=== PATIENT | male | born 1965 | race Caucasian/White ===

== ENCOUNTER 2017-02-08 01:33 | Inpatient (IN) | payer OTHER ==
[~2017-02-08] VITALS: Ht 188 cm; Wt 103.3 kg
--- NOTE | 2017-02-08 02:04 | ERA ---
ER Documentation Chief Complaint Date/Time DATE: 02/08/17 TIME: 02:03 Chief Complaint Shortness of breath HPI The patient is a 51-year-old male, presenting to the ER because of shortness of breath for 1 day after his neighbor had a fire pit on and recent exposure to smokes from the [employer]. He has similar symptoms previously from asthma. He denies fever, chills, neck pain, complains of substernal chest pressure with cough, denies chest pain with exertion of vomiting or diaphoresis , denies abdominal pain, vomiting. He does not smoke. He denies orthopnea, paroxysmal nocturnal dyspnea Past medical history: Asthma, peptic ulcer Past surgical history: Left knee ROS All systems reviewed and are negative except as per history of present illness. Allergies Allergies: Coded Allergies: No Known Allergy (Unverified , 02/08/17) PMhx/Soc History of Surgery: Yes (left knee sx) Anesthesia Reaction: No Hx Neurological Disorder: No Hx Respiratory Disorders: Yes (asthma,seasonal allergies) Hx Cardiac Disorders: No Hx Psychiatric Problems: No Hx Miscellaneous Medical Probl: No Hx Alcohol Use: Yes (casually) Hx Substance Use: No Hx Tobacco Use: No Smoking Status: Never smoker Physical Exam Vitals Vital Signs Date Time Temp Pulse Resp B/P Pulse Ox O2 Delivery O2 Flow Rate FiO2 02/08/17 02:35 Nasal Cannula 2 02/08/17 02:35 Nasal Cannula 2.0 02/08/17 02:23 80 24 96 Nasal Cannula 2.0 02/08/17 01:36 98.5 94 28 141/79 91 Physical Exam Const: No acute distress. Head: Atraumatic. Eyes: Normal Conjunctiva. ENT: Normal External Ears, Nose and Mouth. Neck: Full range of motion. No meningismus. Resp: Bilateral expiratory wheezes Cardio: Regular rate and rhythm. Abd: Soft, non distended, normal bowel sounds, non tender. Skin: No petechiae or rashes. Back: No midline or flank tenderness. Ext: No cyanosis, or edema. Neur: Awake and alert. No focal deficit Psych: Normal Mood and Affect. Result Diagram: 02/08/17 0224 02/08/17 0224 Results 24 hrs Laboratory Tests Test 02/08/17 02:24 White Blood Count 11.410^3/ul Red Blood Count 5.0910^6/ul Hemoglobin 14.8g/dl Hematocrit 44.6% Mean Corpuscular Volume 87.6fl Mean Corpuscular Hemoglobin 29.1pg Mean Corpuscular Hemoglobin Concent 33.2g/dl Red Cell Distribution Width 13.7% Platelet Count 47853^3/UL Mean Platelet Volume 10.2fl Neutrophils % 73.2% Lymphocytes % 13.1% Monocytes % 10.5% Eosinophils % 2.5% Basophils % 0.3% Nucleated Red Blood Cells % 0.0/100WBC Neutrophils # 8.410^3/ul Lymphocytes # 1.510^3/ul Monocytes # 1.210^3/ul Eosinophils # 0.310^3/ul Basophils # 0.010^3/ul Nucleated Red Blood Cells # 0.010^3/ul Prothrombin Time 12.8Sec Prothrombin Time Ratio 1.0 INR International Normalized Ratio 0.96 Activated Partial Thromboplast Time 26.3Sec D-Dimer < 220.00ng/ml D-Dimer Comment Sodium Level 138mmol/L Potassium Level 3.8mmol/L Chloride Level 101mmol/L Carbon Dioxide Level 27mmol/L Anion Gap 14 Blood Urea Nitrogen 15mg/dl Creatinine 0.93mg/dl Glucose Level 114mg/dl Calcium Level 9.5mg/dl Troponin I < 0.012ng/ml B-Type Natriuretic Peptide 76PG/ML Current Medications Medications (Trade) Dose Ordered Sig/Dayan Route PRN Reason Start Time Stop Time Status Last Admin Dose Admin Levalbuterol (Xopenex Neb) 3.75 mg ONCE STAT INH 02/08/17 02:11 02/08/17 02:13 DC 02/08/17 02:23 Ipratropium [place] (Atrovent 0.02% (Neb)) 1.5 mg ONCE STAT INH 02/08/17 02:11 02/08/17 02:13 DC 02/08/17 02:23 Methylprednisolone Sodium Succinate 125 mg 125 mg ONCE STAT IV 02/08/17 02:11 02/08/17 02:14 DC 02/08/17 02:29 Sodium Chloride (NS) 1,000 ml @ 1,000 mls/hr Q1H ONCE IV 02/08/17 02:30 02/08/17 03:29 DC 02/08/17 02:30 Pantoprazole (Protonix Iv) 40 mg ONCE ONCE IV 02/08/17 02:30 02/08/17 02:31 DC 02/08/17 02:29 Procedures/MDM EKG: Read by emergency physician Rate/Rhythm: Normal Sinus Rhythm 83 beats/min QRS, ST, T-waves: No ST elevation, no T inversion, IRBB Impression: Abnormal EKG [place] [id number] Radiology Main Line: [phone] DIAGNOSTIC IMAGING REPORT Patient: DWAIN ORONA : 1965 Age: 51 Sex: M MR #: [id number] DOS: 02/08/17 0211 Ordering MD: JASPAL ELI MD Location: E/R Room/Bed: PROCEDURE: XR Chest. CLINICAL INDICATION: Shortness of breath. TECHNIQUE: Single frontal chest x-ray. COMPARISON: None. FINDINGS: Heart is top normal size.. There is diffuse interstitial prominence compatible with mild CHF.. There is hypoventilation with bibasilar atelectasis.. There is no pleural effusion. There is no pneumothorax. The osseous structures are unremarkable. IMPRESSION: Heart top normal size. Mild CHF. Hypoventilation with bibasilar atelectasis. RPTAT: HMVK .Jaspal Mccollum MD, Date Time Electronically viewed and signed by .Jaspal Mccollum MD, on 02/08/2017 02:47 .K/ CC: JASPAL ELI MD MEDICAL MAKING DECISION: The patient is a 51-year-old male, presenting with acute asthma exacerbation with acute hypoxemia. He was treated with 1 L normal saline, Solu-Medrol 125 mg IV, Xopenex 3% 5 mg and Atrovent 1.5 mg nebulizer over one hour and Protonix 40 IV with moderate response. However his O2 sat is still low between 91-93% on room air. I do not suspect CHF or PE The differential diagnoses considered include but are not limited to asthma, COPD, pneumonia, pulmonary embolus, pleural effusion, congestive heart failure. Critical Care: Time: 35 minutes excluding all billable procedures. Treatments/Evaluations: Close monitoring and treatment of unstable vital signs, cardiorespiratory, and neurologic status, while maintaining tight balance of fluid, respiratory, and cardiac interventions. Departure Diagnosis: Primary Impression: Acute respiratory failure Additional Impression: Acute asthma exacerbation Condition: Stable Comments I discussed the findings with the patient. I discussed the patient with the on- call hospitalist Dr. Gallo at 4:30 AM who was made aware of the lab, the treatment, the patient condition. The patient is admitted to telemetry for 24 hour observation The patient's blood pressure was elevated (>120/80) but appears stable without evidence of hypertension emergency or urgency. The patient was counseled about the risks of hypertension and urged to pursue outpatient monitoring and therapy within a week with their primary care physician. JASPAL ELI MD Feb 08, 2017 02:04
[2017-02-08] MEDS ORDERED: IPRATROPIUM (NEB) 0.5 MG/2.5 ML AMP INH STA (02:11)
[2017-02-08] MEDS ORDERED: LEVALBUTEROL (NEB) 1.25 MG/0.5 ML AMP INH STA (02:11)
[2017-02-08] MEDS ORDERED: METHYLPREDNISOLONE 125 MG INJ IV STA (02:11)
[2017-02-08] MEDS ORDERED: SOD CHLORIDE 0.9% 1,000 ML IV ONE (02:30)
[2017-02-08] MEDS ORDERED: PANTOPRAZOLE 40 MG INJ IV ONE (02:30)
--- NOTE | 2017-02-08 02:47 | RADRPT ---
PROCEDURE: XR Chest. CLINICAL INDICATION: Shortness of breath. TECHNIQUE: Single frontal chest x-ray. COMPARISON: None. FINDINGS: Heart is top normal size.. There is diffuse interstitial prominence compatible with mild CHF.. Ther e is hypoventilation with bibasilar atelectasis.. There is no pleural effusion. There is no pneumo thorax. The osseous structures are unremarkable. IMPRESSION: Heart top normal size. Mild CHF. Hypoventilation with bibasilar atelectasis. RPTAT: HMVK .Jaspal Mccollum MD, MD Date Time Electronically viewed and signed by .Jaspal Mccollum MD, MD on 02/08/2017 02:47 .K/
[2017-02-08 03:03] LABS: BASOPHILS % 0.3 % (0.0-2.0); EOSINOPHILS # 0.3 10^3/ul (0.0-0.5); EOSINOPHILS % 2.5 % (0.0-7.0); HEMATOCRIT 44.6 % (42.0-52.0); HEMOGLOBIN 14.8 g/dl (14.0-18.0); LYMPHOCYTES # 1.5 10^3/ul (0.8-2.9); LYMPHOCYTES % 13.1 % (15.0-51.0); MEAN CORPUSCULAR HEMOGLOBIN 29.1 pg (29.0-33.0); MEAN CORPUSCULAR HGB CONC 33.2 g/dl (32.0-37.0); MEAN CORPUSCULAR VOLUME 87.6 fl (82.0-101.0); MEAN PLATELET VOLUME 10.2 fl (7.4-10.4); MONOCYTE # 1.2 10^3/ul (0.3-0.9); MONOCYTES % 10.5 % (0.0-11.0); NEUTROPHIL # 8.4 10^3/ul (1.6-7.5); NEUTROPHILS % 73.2 % (39.0-77.0); PLATELET COUNT 212 10^3/UL (140-415); RED BLOOD COUNT 5.09 10^6/ul (4.70-6.10); RED CELL DISTRIBUTION WIDTH 13.7 % (11.5-14.5); WHITE BLOOD COUNT 11.4 10^3/ul (4.8-10.8)
[2017-02-08 03:19] LABS: ADD SCAN DIFF NO
[2017-02-08 03:21] LABS: ANION GAP 14 (8-16); BLOOD UREA NITROGEN 15 mg/dl (7-20); CALCIUM 9.5 mg/dl (8.4-10.2); CARBON DIOXIDE 27 mmol/L (21-31); CHLORIDE 101 mmol/L (97-110); CREATININE 0.93 mg/dl (0.61-1.24); GLUCOSE 114 mg/dl (70-220); POTASSIUM 3.8 mmol/L (3.5-5.1); SODIUM 138 mmol/L (135-144)
[2017-02-08 03:33] LABS: TROPONIN-I < 0.012 ng/ml (0.00-0.12)
[2017-02-08 03:57] LABS: INR 0.96; PROTIME 12.8 Sec (12.2-14.2)
[2017-02-08 03:58] LABS: PARTIAL THROMBOPLASTIN TIME 26.3 Sec (25.0-35.0)
[2017-02-08 04:20] LABS: D-DIMER < 220.00 ng/ml (<460)
[2017-02-08] MEDS ORDERED: ONDANSETRON 4 MG INJ IV PRN ×2 (06:30→07:00)
[2017-02-08] MEDS ORDERED: ACETAMINOPHEN 325 MG TAB PO PRN ×2 (06:30→07:00)
[2017-02-08] MEDS ORDERED: BISACODYL (EC) 5 MG TAB PO PRN (07:00)
[2017-02-08] MEDS ORDERED: DOCUSATE SODIUM 100 MG CAP PO PRN (07:00)
[2017-02-08] MEDS ORDERED: FUROSEMIDE 40 MG INJ IV ONE (07:00)
[2017-02-08] MEDS ORDERED: NACL 0.9% 3 ML SYG IV SCH (07:00)
--- NOTE | 2017-02-08 07:00 | HP ---
Date/Time of Note Date/Time of Note DATE: 02/08/17 TIME: 06:47 Assessment/Plan VTE Prophylaxis VTE Prophylaxis Intervention: LMWH Assessment/Plan Chief Complaint/Hosp Course This is a 51-year-old male being admitted to the telemetry floor for: #1 Respiratory distress: This likely appears to be an acute asthma exacerbation based on the patient's history and his presentation. His x-ray did show some possible congestion. BNP though was within normal values and d- dimer was normal as well which likely makes heart failure and PE less likely at this time. I will however give him 1 dose of IV Lasix. Also continue him on albuterol every 4 hours and prednisone burst for 5 days. He did receive IV Solu -Medrol loading dose in the ED already. He does have a slight elevated white count however there are no fevers. At the current time I do not see any signs of any underlying pneumonia or infection. Will hold off on any antibiotics at this time. Will continue O2 supplementation via nasal cannula. #2 Obesity: We will check a TSH, lipid panel, and hemoglobin A1c #3 DVT and GI prophylaxis: Lovenox, Protonix Further treatment strategy will be implemented as per the clinical course Problems: HPI/ROS Admit Date/Time Admit Date/Time Hx of Present Illness Chief complaint: Shortness of breath 1 day The patient is a 51-year-old male, presenting to the ER because of shortness of breath for 1 day after his neighbor had a fire pit on and recent exposure to smokes from the [email or web address]. Patient also was working outside in the yard and where there is just implants. He has similar symptoms previously from asthma. He denies fever, chills, neck pain, complains of substernal chest pressure with cough, denies chest pain with exertion of vomiting or diaphoresis , denies abdominal pain, vomiting. He does not smoke. He denies orthopnea, paroxysmal nocturnal dyspnea Allergies: Environmental allergies Medications: See KEELEY JAIMES Const: As per HPI Eyes : No pain discharge or redness or change in visual acuity ENT: No pain, sore throat, congestion, congestion, dysphagia or discharge Respiratory: As per HPI Cardiovascular: No chest pain, palpitation, PND, or edema GI : no change in appetite, abdominal pain, nausea, vomiting, diarrhea, constipation, or change in the color his stool Genitourinary: No dysuria, hematuria, flank pain , discharge or CVA tenderness Musculoskeletal: No joint pain, back pain, neck pain, restricted range of motion in neck or joints Skin: No rash, bruising or hives Neuro: No headache, dizziness, syncope, seizure, focal weakness Endocrine: No polyuria, polydipsia, temperature intolerance Psych: No hallucination, depression, anxiety or suicidal ideation PMH/Family/Social Past Medical History Asthma, peptic ulcer? Past Surgical History Left knee surgery Family History Significant Family History: cancer (Lung cancer), diabetes Social History Alcohol Use: rarely Smoking Status: Never smoker Drug Use: none Exam/Review of Systems Vital Signs Vitals Vital Signs Date Time Temp Pulse Resp B/P Pulse Ox O2 Delivery O2 Flow Rate FiO2 02/08/17 06:09 80 18 129/69 94 Room Air 02/08/17 02:35 2 02/08/17 01:36 98.5 Exam Exam General: Patient is lying in bed in no acute distress. However when patient takes a deep breath he does go into a coughing fit. According to him he is feeling much better after receiving breathing treatments in the ED HEENT: Atraumatic, normocephalic. The pupils are equal, round and reactive. Extraocular motor are intact Neck: Supple with full range of motion. No rigidity or meningismus Chest: Nontender Lungs: Clear to auscultation bilaterally, no wheezes. Heart: Normal S1-S2, Regular rhythm and rate. Abdomen: Soft , nontender, nondistended , bowel sounds are present. No guarding no rebound tenderness , No masses or organomegaly. No costovertebral temporal angle mass Extremities: Normal to inspection, no edema no cyanosis Neurologic: Normal mental status, speech normal, cranial nerves II through XII are intact, motor and sensory are intact, no focal weakness Additional Comments PROCEDURE: XR Chest. CLINICAL INDICATION: Shortness of breath. TECHNIQUE: Single frontal chest x-ray. COMPARISON: None. FINDINGS: Heart is top normal size.. There is diffuse interstitial prominence compatible with mild CHF.. There is hypoventilation with bibasilar atelectasis.. There is no pleural effusion. There is no pneumothorax. The osseous structures are unremarkable. IMPRESSION: Heart top normal size. Mild CHF. Hypoventilation with bibasilar atelectasis. Rate/Rhythm: Normal Sinus Rhythm 83 beats/min QRS, ST, T-waves: No ST elevation, no T inversion, IRBB As per ED physician documentation Labs Result Diagram: 02/08/17 0224 02/08/17 0224 TOMMY KWON Feb 08, 2017 06:58
[2017-02-08 08:45] VITALS: BP 138/85; PULSE 68; RESP 18; Ht 188 cm; Wt 103.3 kg
[2017-02-08] MEDS ORDERED: ENOXAPARIN 40 MG/0.4 ML SYG SC SCH (09:00)
[2017-02-08 09:26] VITALS: PULSE 78
[2017-02-08] MEDS: predniSONE 20 MG TAB PO SCH (10:40)
[2017-02-08 12:00] VITALS: BP 130/65; PULSE 66; PULSE 72; RESP 18
[2017-02-08] MEDS: ALBUTEROL 0.083% (NEB) 2.5 MG/3 ML AMP HHN SCH ×3 (13:47→21:52)
[2017-02-08 16:00] VITALS: BP 127/72; PULSE 72; PULSE 77; RESP 18
[2017-02-08] MEDS ORDERED: ALBUTEROL/IPRATROPIUM (NEB) 3 ML AMP HHN PRN (20:00)
[2017-02-08 20:20] VITALS: PULSE 74
[2017-02-08 20:42] VITALS: BP 122/62; RESP 15
[2017-02-08] MEDS: SALMETEROL/FLUTICASONE 100/50 INHA INH SCH (21:36)
[2017-02-09] VITALS (10 sets, daily range): BP systolic 115–133; BP diastolic 60–71; PULSE 60–78; RESP 15–20
[2017-02-09] MEDS: ALBUTEROL 0.083% (NEB) 2.5 MG/3 ML AMP HHN SCH ×6 (01:29→20:15)
[2017-02-09] MEDS ORDERED: PANTOPRAZOLE 40 MG INJ IV SCH (06:00)
[2017-02-09] MEDS: LEVOFLOXACIN 500 MG TAB PO SCH (06:44)
[2017-02-09 06:48] LABS: BASOPHILS % 0.1 % (0.0-2.0); EOSINOPHILS # 0.3 10^3/ul (0.0-0.5); EOSINOPHILS % 2.1 % (0.0-7.0); HEMOGLOBIN 14.5 g/dl (14.0-18.0); LYMPHOCYTES # 1.7 10^3/ul (0.8-2.9); MEAN CORPUSCULAR HEMOGLOBIN 29.9 pg (29.0-33.0); MEAN CORPUSCULAR HGB CONC 33.7 g/dl (32.0-37.0); MEAN CORPUSCULAR VOLUME 88.7 fl (82.0-101.0); MEAN PLATELET VOLUME 10.4 fl (7.4-10.4); MONOCYTE # 1.5 10^3/ul (0.3-0.9); MONOCYTES % 11.1 % (0.0-11.0); NEUTROPHIL # 9.8 10^3/ul (1.6-7.5); NEUTROPHILS % 73.2 % (39.0-77.0); PLATELET COUNT 208 10^3/UL (140-415); RED BLOOD COUNT 4.85 10^6/ul (4.70-6.10); RED CELL DISTRIBUTION WIDTH 13.7 % (11.5-14.5); WHITE BLOOD COUNT 13.4 10^3/ul (4.8-10.8)
[2017-02-09 07:15] LABS: ALBUMIN 4.5 g/dl (3.3-4.9); ALBUMIN/GLOBULIN RATIO 1.15; BILIRUBIN,INDIRECT 0.1 mg/dl (0-1.1); BILIRUBIN,TOTAL 0.1 mg/dl (0.2-1.3); CALCIUM 9.9 mg/dl (8.4-10.2); CHOL/HDL RATIO 6.3 RATIO; CREATININE 0.86 mg/dl (0.61-1.24); MAGNESIUM 2.2 mg/dl (1.7-2.5); POTASSIUM 4.5 mmol/L (3.5-5.1); TOTAL PROTEIN 8.4 g/dl (6.1-8.1)
[2017-02-09 07:39] LABS: THYROID STIMULATING HORMONE 0.853 MIU/L (0.465-4.680)
[2017-02-09] MEDS: SALMETEROL/FLUTICASONE 100/50 INHA INH SCH ×2 (09:30→20:46)
[2017-02-09] MEDS: predniSONE 20 MG TAB PO SCH (09:30)
--- NOTE | 2017-02-09 12:50 | CONS ---
Date/Time of Note Date/Time of Note DATE: 02/09/17 TIME: 12:47 Assessment/Plan Assessment/Plan Chief Complaint/Hosp Course Assessment 1. Community-acquired pneumonia with tracheobronchitis 2. Possible history of mild asthma 3. Hypoxemic respiratory failure secondary to above Plan 1. Continue steroids 2. Antibiotics 3 encourage ambulation 4. Supplemental O2 Problems: Consultation Date/Type/Reason Admit Date/Time Date of Consultation: Feb 09, 2017 Reason for Consultation Pulmonary Hx of Present Illness 51-year-old gentleman with a remote history of asthma here for 2-3 day history of increasing cough congestion shortness of breath. Increasing productive cough with thick yellow sputum production. Subjective shortness of breath with hypoxemia documented on admission. No hemoptysis hematemesis no recent travel history no sick contacts. States his breathing has been deteriorating following smoke exposure from his neighbors. Denies any history of intubation mechanical ventilation no history of chronic sinus disease. As above Past Medical History Asthma Social History Alcohol Use: occasionally Smoking Status: Never smoker Drug Use: none Exam/Review of Systems Vital Signs Vitals Vital Signs Date Time Temp Pulse Resp B/P Pulse Ox O2 Delivery O2 Flow Rate FiO2 02/09/17 12:00 69 02/09/17 08:34 20 96 Nasal Cannula 2.0 02/09/17 07:49 97.7 120/71 Intake and Output 02/08/17 02/08/17 02/09/17 14:59 22:59 06:59 Intake Total 1000 ml 200 ml Output Total 800 ml Balance 1000 ml -600 ml Exam GENERAL: Well-nourished well-developed gentleman comfortable at rest no acute distress VITAL SIGNS: per chart NECK: Supple. No JVD or lymphadenopathy. CARDIAC EXAM: S1, S2. No added sounds or murmurs. CHEST: clear bilaterally, No added sounds, rales or wheezes ABDOMEN: Soft, nontender. No guarding or rebound. EXTREMITIES: No cyanosis, clubbing or edema. NEUROLOGIC: Generalized weakness. No focal deficits. Results Result Diagram: 02/09/1715 02/09/1715 Results 24 hrs Laboratory Tests Test 02/09/17 06:15 White Blood Count 13.4 H Red Blood Count 4.85 Hemoglobin 14.5 Hematocrit 43.0 Mean Corpuscular Volume 88.7 Mean Corpuscular Hemoglobin 29.9 Mean Corpuscular Hemoglobin Concent 33.7 Red Cell Distribution Width 13.7 Platelet Count 208 Mean Platelet Volume 10.4 Neutrophils % 73.2 Lymphocytes % 13.0 L Monocytes % 11.1 H Eosinophils % 2.1 Basophils % 0.1 Nucleated Red Blood Cells % 0.0 Neutrophils # 9.8 H Lymphocytes # 1.7 Monocytes # 1.5 H Eosinophils # 0.3 Basophils # 0.0 Nucleated Red Blood Cells # 0.0 Sodium Level 141 Potassium Level 4.5 Chloride Level 99 Carbon Dioxide Level 23 Anion Gap 24 #H Blood Urea Nitrogen 20 Creatinine 0.86 Glucose Level 112 Hemoglobin A1c 5.9 Calcium Level 9.9 Magnesium Level 2.2 Total Bilirubin 0.1 L Direct Bilirubin 0.00 Indirect Bilirubin 0.1 Aspartate Amino Transf (AST/SGOT) 24 Alanine Aminotransferase (ALT/SGPT) 44 Alkaline Phosphatase 54 Total Protein 8.4 H Albumin 4.5 Globulin 3.90 H Albumin/Globulin Ratio 1.15 Triglycerides Level 86 Cholesterol Level 294 H LDL Cholesterol, Calculated 231 HDL Cholesterol 46 Cholesterol/HDL Ratio 6.3 Thyroid Stimulating Hormone (TSH) 0.853 Medications Medications Current Medications Ondansetron HCl (Zofran Inj) 4 mg Q6H PRN IV NAUSEA AND/OR VOMITING; Start 02/08 at 07:00 Acetaminophen (Tylenol Tab) 650 mg Q6H PRN PO PAIN LEVEL 1-3 OR FEVER; Start at 07:00 Docusate Sodium (Colace) 100 mg Q12H PRN PO CONSTIPATION; Start 02/08/17 at 07: 00 Bisacodyl (Dulcolax) 5 mg DAILY PRN PO CONSTIPATION; Start 02/08/17 at 07:00 Pantoprazole (Protonix Iv) 40 mg DAILY@06 IV Last administered on 02/09/17 06: 44; Admin Dose 40 MG; Start 02/09/17 at 06:00 Prednisone (Prednisone) 40 mg DAILY PO Last administered on 02/09/17 09:30; Admin Dose 40 MG; Start 02/08/17 at 09:00; Stop 02/13/17 at 08:59 Salmeterol Xinafoate/ Fluticasone (Advair 100/50 Diskus) 1 inh BID INH Last administered on 02/09/17 09:30; Admin Dose 1 INH; Start 02/08/17 at 21:00 Levofloxacin (Levaquin) 500 mg DAILY@06 PO Last administered on 02/09/17t 06:44 ; Admin Dose 500 MG; Start 02/09/17 at 06:00 LAUREL CAMPOS MD, [facility] Feb 09, 2017 12:50
--- NOTE | 2017-02-09 17:21 | PN ---
Date/Time of Note Date/Time of Note DATE: 02/09/17 TIME: 17:18 Assessment/Plan VTE Prophylaxis VTE Prophylaxis Intervention: LMWH Lines/Catheters IV [facility]from [facility] Saline Lock Assessment/Plan Chief Complaint/Hosp Course #1 Asthma exacerbation-improving Pulmonology consultation appreciated Continue Advair, prednisone, antibiotics and DuoNeb as needed #2 Obesity: Total cholesterol is elevated, will recommend lifestyle changes will discuss starting a statin upon DC #3 DVT and GI prophylaxis: Lovenox, Protonix Problems: Subjective 24 Hr Interval Summary Respiratory: shortness of breath Exam/Review of Systems Vital Signs Vitals Vital Signs Date Time Temp Pulse Resp B/P Pulse Ox O2 Delivery O2 Flow Rate FiO2 02/09/17 16:26 70 20 95 Nasal Cannula 2.0 02/09/17 12:00 97.6 118/63 Intake and Output 02/08/17 02/08/17 02/09/17 15:00 23:00 07:00 Intake Total 1000 ml 200 ml Output Total 800 ml Balance 1000 ml -600 ml Exam Constitutional: alert, oriented Respiratory: wheezing Cardiovascular: regular rate and rhythm Gastrointestinal: soft, No distended Musculoskeletal: nl extremities to inspection Results Result Diagram: 02/09/17 0615 02/09/17 0615 Results 24 hrs Laboratory Tests Test 02/09/17 06:15 White Blood Count 13.4 H Red Blood Count 4.85 Hemoglobin 14.5 Hematocrit 43.0 Mean Corpuscular Volume 88.7 Mean Corpuscular Hemoglobin 29.9 Mean Corpuscular Hemoglobin Concent 33.7 Red Cell Distribution Width 13.7 Platelet Count 208 Mean Platelet Volume 10.4 Neutrophils % 73.2 Lymphocytes % 13.0 L Monocytes % 11.1 H Eosinophils % 2.1 Basophils % 0.1 Nucleated Red Blood Cells % 0.0 Neutrophils # 9.8 H Lymphocytes # 1.7 Monocytes # 1.5 H Eosinophils # 0.3 Basophils # 0.0 Nucleated Red Blood Cells # 0.0 Sodium Level 141 Potassium Level 4.5 Chloride Level 99 Carbon Dioxide Level 23 Anion Gap 24 #H Blood Urea Nitrogen 20 Creatinine 0.86 Glucose Level 112 Hemoglobin A1c 5.9 Calcium Level 9.9 Magnesium Level 2.2 Total Bilirubin 0.1 L Direct Bilirubin 0.00 Indirect Bilirubin 0.1 Aspartate Amino Transf (AST/SGOT) 24 Alanine Aminotransferase (ALT/SGPT) 44 Alkaline Phosphatase 54 Total Protein 8.4 H Albumin 4.5 Globulin 3.90 H Albumin/Globulin Ratio 1.15 Triglycerides Level 86 Cholesterol Level 294 H LDL Cholesterol, Calculated 231 HDL Cholesterol 46 Cholesterol/HDL Ratio 6.3 Thyroid Stimulating Hormone (TSH) 0.853 Medications Medications Current Medications Ondansetron HCl (Zofran Inj) 4 mg Q6H PRN IV NAUSEA AND/OR VOMITING; Start 02/08 at 07:00 Acetaminophen (Tylenol Tab) 650 mg Q6H PRN PO PAIN LEVEL 1-3 OR FEVER; Start at 07:00 Docusate Sodium (Colace) 100 mg Q12H PRN PO CONSTIPATION; Start 02/08/17 at 07: 00 Bisacodyl (Dulcolax) 5 mg DAILY PRN PO CONSTIPATION; Start 02/08/17 at 07:00 Prednisone (Prednisone) 40 mg DAILY PO Last administered on 02/09/17 09:30; Admin Dose 40 MG; Start 02/08/17 at 09:00; Stop 02/13/17 at 08:59 Salmeterol Xinafoate/ Fluticasone (Advair 100/50 Diskus) 1 inh BID INH Last administered on 02/09/17 09:30; Admin Dose 1 INH; Start 02/08/17 at 21:00 Levofloxacin (Levaquin) 500 mg DAILY@06 PO Last administered on 02/09/17 06:44 ; Admin Dose 500 MG; Start 02/09/17 at 06:00 Pantoprazole (Protonix Tab) 40 mg DAILY@06 PO ; Start 02/10/17 at 06:00 JUSTIN DAVISON Feb 09, 2017 17:21
[2017-02-10] VITALS (13 sets, daily range): BP systolic 109–132; BP diastolic 55–77; PULSE 63–76; RESP 18–20
[2017-02-10] MEDS: ALBUTEROL 0.083% (NEB) 2.5 MG/3 ML AMP HHN SCH ×6 (01:31→20:31)
[2017-02-10] MEDS: LEVOFLOXACIN 500 MG TAB PO SCH (06:16)
[2017-02-10] MEDS: PANTOPRAZOLE (EC) 40 MG TAB PO SCH (06:16)
[2017-02-10 06:51] LABS: ADD SCAN DIFF NO
[2017-02-10 06:55] LABS: BASOPHILS % 0.3 % (0.0-2.0); EOSINOPHILS # 0.4 10^3/ul (0.0-0.5); EOSINOPHILS % 3.9 % (0.0-7.0); HEMATOCRIT 41.6 % (42.0-52.0); HEMOGLOBIN 13.9 g/dl (14.0-18.0); LYMPHOCYTES # 2.4 10^3/ul (0.8-2.9); LYMPHOCYTES % 23.9 % (15.0-51.0); MEAN CORPUSCULAR HEMOGLOBIN 29.6 pg (29.0-33.0); MEAN CORPUSCULAR HGB CONC 33.4 g/dl (32.0-37.0); MEAN CORPUSCULAR VOLUME 88.5 fl (82.0-101.0); MEAN PLATELET VOLUME 10.4 fl (7.4-10.4); MONOCYTE # 0.9 10^3/ul (0.3-0.9); MONOCYTES % 9.3 % (0.0-11.0); NEUTROPHIL # 6.3 10^3/ul (1.6-7.5); PLATELET COUNT 198 10^3/UL (140-415); RED CELL DISTRIBUTION WIDTH 13.9 % (11.5-14.5); WHITE BLOOD COUNT 10.1 10^3/ul (4.8-10.8)
[2017-02-10 07:14] LABS: CALCIUM 9.4 mg/dl (8.4-10.2); CREATININE 0.84 mg/dl (0.61-1.24); MAGNESIUM 2.1 mg/dl (1.7-2.5); PHOSPHORUS 4.4 mg/dl (2.5-4.9); POTASSIUM 3.9 mmol/L (3.5-5.1)
[2017-02-10] MEDS: SALMETEROL/FLUTICASONE 100/50 INHA INH SCH ×2 (10:19→21:17)
[2017-02-10] MEDS: predniSONE 20 MG TAB PO SCH (10:20)
[2017-02-10] MEDS ORDERED: ALBU8.5H3 INH (11:03)
[2017-02-10] MEDS ORDERED: ADV10050 INH (11:03)
--- NOTE | 2017-02-10 11:04 | PDOCDIS ---
Discharge Instructions CONDITION Patient Condition: Good HOME CARE INSTRUCTIONS: Diet Instructions: Regular ACTIVITY: Activity Restrictions: No Restrictions FOLLOW UP/APPOINTMENTS Follow-up Plan F/U WITH YOUR PCP IN 1-2 WEEKS JUSTIN DAVISON Feb 10, 2017 11:03
--- NOTE | 2017-02-10 11:29 | RADRPT ---
PROCEDURE: XR Chest. CLINICAL INDICATION: Pneumonia, CHF TECHNIQUE: Single frontal chest x-ray. COMPARISON: 02/08/2017 FINDINGS: Slightly low lung volumes are noted with mild perihilar interstitial thickening and bronchial wall t hickening. There is increased left greater than right basilar atelectasis. There is no focal conso lidation, pleural effusion, or pneumothorax. Heart is mildly prominent. Mediastinal contours are un changed. Bones are unchanged. There are no acute fractures. RPTAT: QQ IMPRESSION: 1. Increased left greater than right basilar atelectasis. 2. Slight increased perihilar predominant interstitial thickening which may be from mild pulmonary edema with mild cardiomegaly. .Sharon Francisco MD, MD Date Time Electronically viewed and signed by .Sharon Francisco MD, on 02/10/2017 11:29 .T/
--- NOTE | 2017-02-10 13:31 | CONS ---
Date/Time of Note Date/Time of Note DATE: 02/10/17 TIME: 13:30 Consult Date/Type/Reason Admit Date/Time Feb 08, 2017 at 06:13 Initial Consult Date 02/09/17 Type of Consultation: Pulmonary Subjective Patient states he is feeling better today came off his oxygen 1 hour ago. Still having productive cough. Objective Vital Signs Date Time Temp Pulse Resp B/P Pulse Ox O2 Delivery O2 Flow Rate FiO2 02/10/17 12:14 70 02/10/17 11:20 98.6 18 115/55 96 02/10/17 08:37 3.0 02/10/17 08:37 Nasal Cannula Intake and Output 02/09/17 02/09/17 02/10/17 14:59 22:59 06:59 Intake Total 500 ml 450 ml Output Total 600 ml Balance 500 ml -150 ml Exam GENERAL: Well-nourished well-developed gentleman comfortable at rest no acute distress VITAL SIGNS: per chart NECK: Supple. No JVD or lymphadenopathy. CARDIAC EXAM: S1, S2. No added sounds or murmurs. CHEST: clear bilaterally, No added sounds, rales or wheezes ABDOMEN: Soft, nontender. No guarding or rebound. EXTREMITIES: No cyanosis, clubbing or edema. NEUROLOGIC: Generalized weakness. No focal deficits. Results/Medications Result Diagram: 02/10/17 0604 02/10/17 0604 Results 24 hrs Laboratory Tests Test 02/10/17 06:04 White Blood Count 10.1 # Red Blood Count 4.70 Hemoglobin 13.9 L Hematocrit 41.6 L Mean Corpuscular Volume 88.5 Mean Corpuscular Hemoglobin 29.6 Mean Corpuscular Hemoglobin Concent 33.4 Red Cell Distribution Width 13.9 Platelet Count 198 Mean Platelet Volume 10.4 Neutrophils % 62.0 Lymphocytes % 23.9 Monocytes % 9.3 Eosinophils % 3.9 Basophils % 0.3 Nucleated Red Blood Cells % 0.0 Neutrophils # 6.3 Lymphocytes # 2.4 Monocytes # 0.9 Eosinophils # 0.4 Basophils # 0.0 Nucleated Red Blood Cells # 0.0 Sodium Level 139 Potassium Level 3.9 Chloride Level 100 Carbon Dioxide Level 24 Anion Gap 19 H Blood Urea Nitrogen 19 Creatinine 0.84 Glucose Level 97 Calcium Level 9.4 Phosphorus Level 4.4 Magnesium Level 2.1 Medications Current Medications Ondansetron HCl (Zofran Inj) 4 mg Q6H PRN IV NAUSEA AND/OR VOMITING; Start 02/08 at 07:00 Acetaminophen (Tylenol Tab) 650 mg Q6H PRN PO PAIN LEVEL 1-3 OR FEVER; Start at 07:00 Docusate Sodium (Colace) 100 mg Q12H PRN PO CONSTIPATION; Start 02/08/17 at 07: 00 Bisacodyl (Dulcolax) 5 mg DAILY PRN PO CONSTIPATION; Start 02/08/17 at 07:00 Prednisone (Prednisone) 40 mg DAILY PO Last administered on 02/10/17 10:20; Admin Dose 40 MG; Start 02/08/17 at 09:00; Stop 02/13/17 at 08:59 Salmeterol Xinafoate/ Fluticasone (Advair 100/50 Diskus) 1 inh BID INH Last administered on 02/10/17 10:19; Admin Dose 1 INH; Start 02/08/17 at 21:00 Levofloxacin (Levaquin) 500 mg DAILY@06 PO Last administered on 02/10/17 06:16 ; Admin Dose 500 MG; Start 02/09/17 at 06:00 Pantoprazole (Protonix Tab) 40 mg DAILY@06 PO Last administered on 02/10/17 06: 16; Admin Dose 40 MG; Start 02/10/17 at 06:00 Assessment/Plan Chief Complaint/Hosp Course Assessment 1. Community-acquired pneumonia with tracheobronchitis, slowly improving. 2. Possible history of mild asthma 3. Hypoxemic respiratory failure secondary to above Plan 1. Continue steroids 2. Antibiotics 3. Ambulate record oxygen requirements on room air. Discharge planning if hypoxemia is resolved. Problems: LAUREL CAMPOS MD, [facility] Feb 10, 2017 13:30
[2017-02-10] MEDS ORDERED: ATOR20TA38 PO (14:39)
--- NOTE | 2017-02-10 14:40 | DS ---
Date/Time of Note Date/Time of Note DATE: 02/10/17 TIME: 14:35 Discharge Summary Admission/Discharge Info Admit Date/Time Feb 08, 2017 at 06:13 Discharge Date/Time Discharge Diagnosis 1. Asthma exacerbation-resolved Pulmonology consultation appreciated DC with Advair albuterol inhaler #2 Obesity: Total cholesterol is elevated, lifestyle changes recommended Patient Condition: Good Consults Pulmonology Hospital Course Patient is a 51-year-old male with a history of asthma not on any medications, patient presents with asthma exacerbation. Patient improved with steroids, antibiotics and Advair. Patient was seen by pulmonology, on day of discharge patient was saturating well at room air and was felt to be stable for discharge. On the day of discharge patient's vitals, labs and physical exam were stable. Of note patient's cholesterol was elevated and a statin was prescribed. Home Meds Active Scripts Albuterol Sulfate* (Proair HFA*) 8.5 Gm Hfa.aer.ad, 2 PUFF INH Q4H Y for WHEEZING AND SOB, #1 INHALER Prov:JUSTIN DAVISON 02/10/17 Salmeterol Xinaf-Fluticasone* (Advair*) 100/50 Diskus Inhaler, 1 INH INH BID, # 1 DISK 1 Refill Prov:JUSTIN DAVISON 02/10/17 Follow-up Plan Follow-up with your PCP in 1-2 weeks Primary Care Provider Not On Staff Doctor Time spent on discharge: > 30 minutes Pending Labs Laboratory Tests Test 02/10/17 06:04 White Blood Count 10.110^3/ul (4.8-10.8) Red Blood Count 4.7010^6/ul (4.70-6.10) Hemoglobin 13.9g/dl (14.0-18.0) Hematocrit 41.6% (42.0-52.0) Mean Corpuscular Volume 88.5fl (82.0-101.0) Mean Corpuscular Hemoglobin 29.6pg (29.0-33.0) Mean Corpuscular Hemoglobin Concent 33.4g/dl (32.0-37.0) Red Cell Distribution Width 13.9% (11.5-14.5) Platelet Count 89453^3/UL (140-415) Mean Platelet Volume 10.4fl (7.4-10.4) Neutrophils % 62.0% (39.0-77.0) Lymphocytes % 23.9% (15.0-51.0) Monocytes % 9.3% (0.0-11.0) Eosinophils % 3.9% (0.0-7.0) Basophils % 0.3% (0.0-2.0) Nucleated Red Blood Cells % 0.0/100WBC (0.0-0.0) Neutrophils # 6.310^3/ul (1.6-7.5) Lymphocytes # 2.410^3/ul (0.8-2.9) Monocytes # 0.910^3/ul (0.3-0.9) Eosinophils # 0.410^3/ul (0.0-0.5) Basophils # 0.010^3/ul (0.0-0.1) Nucleated Red Blood Cells # 0.010^3/ul (0.0-0.0) Sodium Level 139mmol/L (135-144) Potassium Level 3.9mmol/L (3.5-5.1) Chloride Level 100mmol/L (97-110) Carbon Dioxide Level 24mmol/L (21-31) Anion Gap 19 (8-16) Blood Urea Nitrogen 19mg/dl (7-20) Creatinine 0.84mg/dl (0.61-1.24) Glucose Level 97mg/dl (70-220) Calcium Level 9.4mg/dl (8.4-10.2) Phosphorus Level 4.4mg/dl (2.5-4.9) Magnesium Level 2.1mg/dl (1.7-2.5) JUSTIN DAVISON Feb 10, 2017 14:40
--- NOTE | 2017-02-10 14:43 | PN ---
Date/Time of Note Date/Time of Note DATE: 02/10/17 TIME: 14:42 Assessment/Plan VTE Prophylaxis VTE Prophylaxis Intervention: LMWH Lines/Catheters IV Catheter Type (from [facility]): Saline Lock Assessment/Plan Chief Complaint/Hosp Course #1 Asthma exacerbation-improving Pulmonology consultation appreciated Continue Advair, prednisone, antibiotics and DuoNeb as needed Patient desaturates when he ambulates, hold DC at this time #2 Obesity: Total cholesterol is elevated, lifestyle changes and will start Lipitor 20 mg #3 DVT and GI prophylaxis: Lovenox, Protonix Problems: Subjective 24 Hr Interval Summary Respiratory: shortness of breath Exam/Review of Systems Vital Signs Vitals Vital Signs Date Time Temp Pulse Resp B/P Pulse Ox O2 Delivery O2 Flow Rate FiO2 02/10/17 13:39 70 18 96 Nasal Cannula 2.0 02/10/17 11:20 98.6 115/55 Intake and Output 02/09/17 02/09/17 02/10/17 15:00 23:00 07:00 Intake Total 500 ml 450 ml Output Total 600 ml Balance 500 ml -150 ml Exam Constitutional: alert, oriented Respiratory: clear to auscultation Cardiovascular: regular rate and rhythm Gastrointestinal: soft, No distended Musculoskeletal: nl extremities to inspection Results Result Diagram: 02/10/17 0604 02/10/17 0604 Results 24 hrs Laboratory Tests Test 02/10/17 06:04 White Blood Count 10.1 # Red Blood Count 4.70 Hemoglobin 13.9 L Hematocrit 41.6 L Mean Corpuscular Volume 88.5 Mean Corpuscular Hemoglobin 29.6 Mean Corpuscular Hemoglobin Concent 33.4 Red Cell Distribution Width 13.9 Platelet Count 198 Mean Platelet Volume 10.4 Neutrophils % 62.0 Lymphocytes % 23.9 Monocytes % 9.3 Eosinophils % 3.9 Basophils % 0.3 Nucleated Red Blood Cells % 0.0 Neutrophils # 6.3 Lymphocytes # 2.4 Monocytes # 0.9 Eosinophils # 0.4 Basophils # 0.0 Nucleated Red Blood Cells # 0.0 Sodium Level 139 Potassium Level 3.9 Chloride Level 100 Carbon Dioxide Level 24 Anion Gap 19 H Blood Urea Nitrogen 19 Creatinine 0.84 Glucose Level 97 Calcium Level 9.4 Phosphorus Level 4.4 Magnesium Level 2.1 Medications Medications Current Medications Ondansetron HCl (Zofran Inj) 4 mg Q6H PRN IV NAUSEA AND/OR VOMITING; Start 02/08 at 07:00 Acetaminophen (Tylenol Tab) 650 mg Q6H PRN PO PAIN LEVEL 1-3 OR FEVER; Start at 07:00 Docusate Sodium (Colace) 100 mg Q12H PRN PO CONSTIPATION; Start 02/08/17 at 07: 00 Bisacodyl (Dulcolax) 5 mg DAILY PRN PO CONSTIPATION; Start 02/08/17 at 07:00 Prednisone (Prednisone) 40 mg DAILY PO Last administered on 02/10/17 10:20; Admin Dose 40 MG; Start 02/08/17 at 09:00; Stop 02/13/17 at 08:59 Salmeterol Xinafoate/ Fluticasone (Advair 100/50 Diskus) 1 inh BID INH Last administered on 02/10/17 10:19; Admin Dose 1 INH; Start 02/08/17 at 21:00 Levofloxacin (Levaquin) 500 mg DAILY@06 PO Last administered on 02/10/17 06:16 ; Admin Dose 500 MG; Start 02/09/17 at 06:00 Pantoprazole (Protonix Tab) 40 mg DAILY@06 PO Last administered on 02/10/17 06: 16; Admin Dose 40 MG; Start 02/10/17 at 06:00 JUSTIN DAVISON Feb 10, 2017 14:43
[2017-02-10] MEDS ORDERED: ATORVASTATIN 20 MG TAB PO SCH (21:00)
[2017-02-11] VITALS (8 sets, daily range): BP systolic 109–138; BP diastolic 55–73; PULSE 63–73; RESP 18–20
[2017-02-11] MEDS: ALBUTEROL 0.083% (NEB) 2.5 MG/3 ML AMP HHN SCH ×4 (01:40→12:21)
[2017-02-11] MEDS: LEVOFLOXACIN 500 MG TAB PO SCH (06:17)
[2017-02-11] MEDS: PANTOPRAZOLE (EC) 40 MG TAB PO SCH (06:17)
[2017-02-11] MEDS: predniSONE 20 MG TAB PO SCH (08:45)
[2017-02-11] MEDS: SALMETEROL/FLUTICASONE 100/50 INHA INH SCH (08:46)
--- NOTE | 2017-02-11 15:10 | CONS ---
Date/Time of Note Date/Time of Note DATE: 02/11/17 TIME: 15:09 Consult Date/Type/Reason Admit Date/Time Feb 09, 2017 at 16:03 Initial Consult Date 02/09/17 Type of Consultation: Pulmonary Subjective Patient comfortable this morning less shortness of breath. Ambulating without desaturation. Objective Vital Signs Date Time Temp Pulse Resp B/P Pulse Ox O2 Delivery O2 Flow Rate FiO2 02/11/17 12:32 94 Room Air 02/11/17 12:25 73 02/11/17 12:22 18 21 02/11/17 11:38 98.6 118/62 02/11/17 09:34 2.0 Intake and Output 02/10/17 02/10/17 02/11/17 15:00 23:00 07:00 Intake Total 650 ml 300 ml Balance 650 ml 300 ml Exam GENERAL: Well-nourished well-developed gentleman comfortable at rest no acute distress VITAL SIGNS: per chart NECK: Supple. No JVD or lymphadenopathy. CARDIAC EXAM: S1, S2. No added sounds or murmurs. CHEST: clear bilaterally, No added sounds, rales or wheezes ABDOMEN: Soft, nontender. No guarding or rebound. EXTREMITIES: No cyanosis, clubbing or edema. NEUROLOGIC: Generalized weakness. No focal deficits. Results/Medications Result Diagram: 02/10/17 0602/10/17 0604 Medications Current Medications Ondansetron HCl (Zofran Inj) 4 mg Q6H PRN IV NAUSEA AND/OR VOMITING; Start 02/08 at 07:00 Acetaminophen (Tylenol Tab) 650 mg Q6H PRN PO PAIN LEVEL 1-3 OR FEVER; Start at 07:00 Docusate Sodium (Colace) 100 mg Q12H PRN PO CONSTIPATION; Start 02/08/17 at 07: 00 Bisacodyl (Dulcolax) 5 mg DAILY PRN PO CONSTIPATION; Start 02/08/17 at 07:00 Prednisone (Prednisone) 40 mg DAILY PO Last administered on 02/11/17 08:45; Admin Dose 40 MG; Start 02/08/17 at 09:00; Stop 02/13/17 at 08:59 Salmeterol Xinafoate/ Fluticasone (Advair 100/50 Diskus) 1 inh BID INH Last administered on 02/11/17 08:46; Admin Dose 1 INH; Start 02/08/17 at 21:00 Levofloxacin (Levaquin) 500 mg DAILY@06 PO Last administered on 02/11/17 06:17 ; Admin Dose 500 MG; Start 02/09/17 at 06:00 Pantoprazole (Protonix Tab) 40 mg DAILY@06 PO Last administered on 02/11/17 06: 17; Admin Dose 40 MG; Start 02/10/17 at 06:00 Atorvastatin Calcium (Lipitor) 20 mg HS PO Last administered on 02/10/17 21:15 ; Admin Dose 20 MG; Start 02/10/17 at 21:00 Assessment/Plan Chief Complaint/Hosp Course Assessment 1. Community-acquired pneumonia with tracheobronchitis, slowly improving. 2. Possible history of mild asthma 3. Hypoxemic respiratory failure secondary to above Plan 1. P.o. steroids 2. P.o. antibiotics Stable for discharge home advised to continue antibiotic steroids and Advair. Follow-up with primary care physician. Problems: LAUREL CAMPOS MD, [facility] Feb 11, 2017 15:10
== END 2017-02-11 16:37 | disposition home or self-care (01) | DRG 202 ==
LOC: E/R 01:33 → MS4 06:13 → INTOOBSV 06:13 → OBSVTOIN 06:13 → UNDOADMOB 06:13 → OBSVTOIN 02-09 16:03 → MS4 02-09 16:03
PROVIDERS: ADMIT Family Medicine; ATTEND Family Medicine
DX: J45.901 Unspecified asthma with (acute) exacerbation (principal); J18.9 Pneumonia, unspecified organism; J96.01 Acute respiratory failure with hypoxia; E66.9 Obesity, unspecified; Z68.29 Body mass index [BMI] 29.0-29.9, adult; I10 Essential (primary) hypertension
CPT/HCPCS: 36415; 71010; 80048; 80053; 80061; 83036; 83735; 83880; 84100; 84443; 84484; 85025; 85378; 85610; 85730; 93005; 94640; 94644; 94664; 96374; 96375; G0378; C9113; J1650; J1940; J2930; J7030; J7512